=== PATIENT | female | born 1965 | race Caucasian/White ===

== ENCOUNTER → 2024-06-07 | Outpatient (CLI) | payer OTHER ==
[~2024-06-07] MED LIST: ACEBUTCAFT; ACEBUTCAFT PO; AMIT50; AMOX500 PO; ANABUSE PO; AZIT250 PO; BUTASPCAFT PO; CEFD300 PO; CEFP500 PO; CHLO10; CLON.5; CLOR7.5 PO; CYAN1000I; CYAN1000I IM; CYANOCOBALAMIN; CYMBALTA 60 MG; ELET40TA; ESCI10; ESCI10 PO; ESCI5; ESCI5 PO; ESTRADIOL PO; ESZO2 PO; FISH1000 PO; FLAX PO; FLUT.05NI; FROV2.5; FROV2.5 PO; HYDACE5 PO; HYDMOR2 PO; IBUHYD PO; KETO10; KETO10 PO; LAVAP17G PO; LISDEXAMFETAMINE 70 MG; LORA1 PO; LORA2; METCAR750 PO; METPHE20 PO; MILN100T PO; MOXI400 PO; MULVITMINE; NORT50; OXYACE5T PO; POLY17UD PO; PROC10 PO; PROM25; PROM25 PO; PSEU30 PO; QUET100 PO; QUET200 PO; QUET25 PO; RIZA; RIZA PO; RIZATRIPTAN; SULTRIDS PO; SUMA6I; TEMA30 PO; TIZA4 PO; TOPAMAX; TOPI100; TOPI50 PO; TOPIRAMATE 100 MG; TRAM50 PO; TREXIMET; VIIBRYD PO; VITAMIN B; VYVANSE PO; ZOLM5; ZOLP5; [UNRECOGNIZED DRUG - OTHER]; [UNRECOGNIZED DRUG - OTHER]
[2024-06-07 15:47] LABS: Bacterial Vaginosis PCR Negative (NEGATIVE); Candida Group, PCR DETECTED (NOT DETECT); Candida glabrata-krusei, PCR DETECTED (NOT DETECT)
== END | disposition home or self-care (01) ==
LOC: LAB SHORT 13:16 → LAB 13:16
PROVIDERS: Nurse Practitioner Family
DX: R35.0 Frequency of micturition (principal)
CPT/HCPCS: 87077; 87086; 87186; 87481; 87661; 87801

== ENCOUNTER → 2024-06-20 | Outpatient (CLI) | payer OTHER ==
[2024-06-20 20:39] LABS: Bacterial Vaginosis PCR Negative (NEGATIVE)
[2024-06-21 00:06] LABS: Candida Group, PCR DETECTED (NOT DETECT); Candida glabrata-krusei, PCR DETECTED (NOT DETECT)
== END | disposition home or self-care (01) ==
LOC: LAB SHORT 15:06 → LAB 15:06
PROVIDERS: Nurse Practitioner Family
DX: N39.0 Urinary tract infection, site not specified (principal)
CPT/HCPCS: 87481; 87661; 87801

== ENCOUNTER → 2024-10-12 | Outpatient (CLI) | payer OTHER | LOC: LAB 17:47 → LAB SHORT 17:47 | DX: R10.9 Unspecified abdominal pain (principal) | CPT/HCPCS: 87077; 87086; 87186 ==

== ENCOUNTER → 2024-10-26 | Outpatient (CLI) | payer OTHER | LOC: LAB 09:52 → LAB SHORT 09:52 | DX: N39.0 Urinary tract infection, site not specified (principal) | CPT/HCPCS: 87077; 87086; 87186 ==

== ENCOUNTER 2025-05-01 21:03 | Emergency (ER) | payer OTHER ==
[~2025-05-01] VITALS: Ht 170.2 cm; Wt 75.3 kg
[2025-05-01 21:37] LABS: BASOPHILS ABSOLUTE AUTO 0.07 K/mm3 (0.00-0.23); BASOPHILS PERCENT AUTO 1 % (0-2); EOSINOPHILS ABSOLUTE AUTO 0.15 K/mm3 (0.00-0.68); EOSINOPHILS PERCENT AUTO 2 % (0-6); Hematocrit 37.9 % (33.0-51.0); Hemoglobin 13.5 g/dL (11.5-16.0); IMMATURE GRAN ABSOLUTE AUTO 0.01 K/mm3 (0.00-0.10); IMMATURE GRAN PERCENT AUTO 0 % (0-1); LYMPHOCYTES ABSOLUTE AUTO 2.45 K/mm3 (0.84-5.20); LYMPHOCYTES PERCENT AUTO 38 % (21-46); MONOCYTES ABSOLUTE AUTO 0.89 K/mm3 (0.16-1.47); MONOCYTES PERCENT AUTO 14 % (4-13); Mean Corpuscular HGB Conc 35.6 g/dL (31.5-36.5); Mean Corpuscular Volume 97 fL (80-100); NEUTROPHILS ABSOLUTE AUTO 2.97 K/mm3 (1.96-9.15); NEUTROPHILS PERCENT AUTO 45 % (41-73); NRBC ABSOLUTE 0.00 K/mm3 (0.00-0.02); NRBC Auto 0.0 /100 WBC (0.0-0.2); Platelet Count 254 K/mm3 (150-400); RDW Coefficient Variation 14.9 % (11.7-14.2); RDW Standard Deviation 53.4 fL (35.1-46.3)
[2025-05-01 22:01] LABS: Alanine Aminotransfer (ALT/SGP 25.0 U/L (12-78); Albumin, Blood 3.2 g/dL (3.4-5.0); Albumin/Globulin Ratio 1.0 (0.8-1.8); Anion Gap 12.0 mmol/L (3-11); Aspartate Aminotrans (AST/SGOT 25.0 U/L (12-37); Bilirubin, Total 0.5 mg/dL (0.1-1.0); Blood Urea Nitrogen 11.0 mg/dL (8-24); CO2, Blood 20.0 mmol/L (21-32); Calcium, Blood 8.4 mg/dL (8.5-10.1); Chloride, Blood 108.0 mmol/L (98-108); Creatinine, Blood 0.84 mg/dL (0.40-1.00); Globulin, Blood 3.3 g/dL (2.2-4.0); Glucose, Blood 89.0 mg/dL (70-99); Potassium, Blood 3.7 mmol/L (3.5-5.5); Sodium, Blood 136.0 mmol/L (136-145); Total Protein, Blood 6.5 g/dL (6.4-8.2)
[2025-05-02] MEDS ORDERED: HYDROcodone 5-APAP 325 TAB PO ONE (00:20)
[2025-05-02 00:28] VITALS: BP 114/72
[2025-05-02] MEDS ORDERED: PRED20 PO (00:31)
== END 2025-05-02 01:03 | disposition home or self-care (01) ==
LOC: ER 21:03
PROVIDERS: Student in an Organized Health Care Education/Training Program
DX: S29.011A Strain of muscle and tendon of front wall of thorax, initial encounter (principal); J43.9 Emphysema, unspecified; Z86.711 Personal history of pulmonary embolism; F17.200 Nicotine dependence, unspecified, uncomplicated; X58.XXXA Exposure to other specified factors, initial encounter
CPT/HCPCS: 71046; 80053; 84484; 85025; 93005; 93010; 99284-25; A9270

== ENCOUNTER 2025-06-15 18:02 | Emergency (ER) | payer OTHER ==
[~2025-06-15] VITALS: Ht 170.2 cm; Wt 74.8 kg
[~2025-06-15 18:02] MED LIST changes: +PRED20 PO
[2025-06-15 21:06] VITALS: BP 119/83
== END 2025-06-15 21:52 | disposition home or self-care (01) ==
LOC: ER 18:02
DX: R10.30 Lower abdominal pain, unspecified (principal); Z88.8 Allergy status to other drugs, medicaments and biological substances; Z79.899 Other long term (current) drug therapy
CPT/HCPCS: 93971; 99283-25

== ENCOUNTER → 2025-07-07 | Outpatient (CLI) | payer OTHER ==
[2025-07-07 13:55] LABS: Bacterial Vaginosis PCR Negative (NEGATIVE); Candida Group, PCR NOT DETECTED (NOT DETECT)
[2025-07-07 14:52] LABS: Candida glabrata-krusei, PCR DETECTED (NOT DETECT)
== END ==
LOC: LAB 09:24 → LAB SHORT 09:24
PROVIDERS: Student in an Organized Health Care Education/Training Program
DX: R10.9 Unspecified abdominal pain (principal)
CPT/HCPCS: 81515; 87077; 87086; 87186

== ENCOUNTER → 2025-09-04 | Outpatient (CLI) | payer OTHER | END | disposition home or self-care (01) | LOC: LAB SHORT 17:00 → LAB 17:00 | DX: L08.9 Local infection of the skin and subcutaneous tissue, unspecified (principal) | CPT/HCPCS: 87070; 87075; 87077; 87186; 87205 ==